=== PATIENT | female | born 1940 | race Caucasian/White ===

== ENCOUNTER 2018-12-04 07:46 | Emergency (ER) | payer MEDICARE ==
[~2018-12-04] VITALS: Ht 162.5 cm; Wt 55.0 kg
--- NOTE | 2018-12-04 07:53 | NUR ---
Ambulatory to ED 5 with spouse assist per pt request. Pt c/o feeling mild dizziness and very anxious. Resp 22/min. Pt begins to expel deep belching. See nursing unit coordinator/assessments.
[2018-12-04] MEDS ORDERED: LORazepam INJ 2 MG/ML (ATIVAN) VIAL IVP ONE (08:30)
[2018-12-04] MEDS ORDERED: NS IV 1000 ML 1,000 ML IV SCH (08:30)
[2018-12-04 08:42] LABS: BACTERIA,URINE TRACE /HPF; BILIRUBIN,URINE NEGATIVE (NEGATIVE); CLARITY,URINE CLEAR; COLOR,URINE PALE YELLOW; GLUCOSE, URINE (UA) NEGATIVE (NEGATIVE); KETONES,URINE NEGATIVE (NEGATIVE); LEUKOCYTE ESTERASE ,URINE NEGATIVE (NEGATIVE); NITRITE,URINE NEGATIVE (NEGATIVE); PROTEIN,URINE NEGATIVE (NEGATIVE); WBC,URINE RARE /HPF
[2018-12-04 08:54] LABS: HEMATOCRIT 38 % (35-52); HEMOGLOBIN 13.2 G/DL (11.5-16.0); MEAN CORPUSCULAR HEMOGLOBIN 33 PG (25-34); MEAN CORPUSCULAR HGB CONC 35 G/DL (32-36); MEAN CORPUSCULAR VOLUME 95 FL (80-99); RED CELL DISTRIBUTION WIDTH 12.1 % (10.0-14.5); WHITE BLOOD COUNT 4.5 10^3/uL (4.3-11.0)
--- NOTE | 2018-12-04 08:54 | ED General ---
General Chief Complaint: General Problems/Pain Stated Complaint: EXTREMITY NUMBNESS History of Present Illness Date Seen by Provider: Dec 04, 2018 Time Seen by Provider: 08:48 Initial Comments Patient presenting to emergency department for evaluation of multiple complaints including generalized weakness numbness and shakiness fatigue and not feeling well. She said when she went to bed last night she didn't feel well but cannot elaborate further and then she said she woke up at approximately 4:30 with pain in her fourth and fifth toes on the left side and then she started to feel numb all over and became shaky and short of breath. Patient says that she feels very tired she did not sleep well last night and that the numbness is bilateral arms and legs and she feels more numb legs anything else. She says the numbness has largely resolved but she feels shaky all over and cannot stop shaking her extremities. She does not appear to be actively shaking while I am in the room. She says the toe pain has resolved and she has no new pain such as headache chest pain or abdominal pain. She has medical history including normal including neuropathy and renal insufficiency anxiety but no diagnosis of heart attacks or strokes. She is in no obvious distress with normal vital signs. Allergies and Home Medications Allergies Coded Allergies: ipratropium (Unverified Adverse Reaction, Mild, Nausea and vomiting, 12/04/18) itraconazole (Unverified Adverse Reaction, Mild, Itching, hives, 12/04/18) Home Medications Cholecalciferol (Vitamin D3) 1,000 Unit Tablet, 1,000 UNIT PO DAILY, (Reported) Estradiol 1 Mg Tablet, 1 MG PO DAILY, (Reported) Famotidine 20 Mg Tablet, 20 MG PO DAILY, (Reported) L.acidoph & Paracasei,B.lactis 1 Each Capsule, 1 EACH PO DAILY, (Reported) Levothyroxine Sodium 75 Mcg Tablet, 75 MCG PO DAILY, (Reported) Lisinopril/Hydrochlorothiazide 1 Each Tablet, 1 TAB PO DAILY, (Reported) Metoprolol Succinate 100 Mg Tab.er.24h, 100 MG PO BID, (Reported) Patient Home Medication List Home Medication List Reviewed: Yes Review of Systems Review of Systems Constitutional: malaise EENTM: no symptoms reported Respiratory: short of breath Cardiovascular: no symptoms reported Gastrointestinal: nausea Genitourinary: no symptoms reported Musculoskeletal: no symptoms reported Skin: no symptoms reported Psychiatric/Neurological: Anxiety All Other Systems Reviewed Negative Unless Noted: Yes Past Pouqaiz-Fxdgkz-Rgopjr Hx Patient Social History Recent Foreign Travel: No Physical Abuse: No Sexual Abuse: No Mistreated: No Fear: No Physical Exam Vital Signs Vital Signs - First Documented 12/04/18 07:53 Temp 35.8 Pulse 60 Resp 22 B/P (MAP) 170/78 (108) Pulse Ox 100 O2 Delivery Room Air Capillary Refill : Height, Weight, BMI Height: '" Weight: lbs. oz. kg; BMI Method: General Appearance: No Apparent Distress, WD/WN HEENT: PERRL/EOMI Neck: Supple Respiratory: No Respiratory Distress Cardiovascular: Regular Rate, Rhythm Gastrointestinal: Non Tender, Soft Back: Normal Inspection Extremity: Normal Capillary Refill Neurologic/Psychiatric: Alert, Oriented x3, No Motor/Sensory Deficits Skin: Warm/Dry Progress/Results/Core Measures Suspected Sepsis SIRS Temperature: Pulse: Respiratory Rate: Laboratory Tests 12/04/18 08:41: White Blood Count 4.5 Blood Pressure / Mean: Laboratory Tests 12/04/18 08:41: Creatinine 1.20, Platelet Count 215, Total Bilirubin 0.6 Results/Orders Lab Results Laboratory Tests Test 12/04/18 07:55 12/04/18 08:41 Range/Units Urine Color PALE YELLOW Urine Clarity CLEAR Urine pH 8.0 5-9 Urine Specific [place] 1.010 L 1.016-1.022 Urine Protein NEGATIVE NEGATIVE Urine Glucose (UA) NEGATIVE NEGATIVE Urine Ketones NEGATIVE NEGATIVE Urine Nitrite NEGATIVE NEGATIVE Urine Bilirubin NEGATIVE NEGATIVE Urine Urobilinogen 0.2 NORMAL MG/DL Urine Leukocyte Esterase NEGATIVE NEGATIVE Urine RBC (Auto) NEGATIVE NEGATIVE Urine RBC NONE /HPF Urine WBC RARE /HPF Urine Squamous Epithelial Cells 5-10 /HPF Urine Crystals NONE /LPF Urine Bacteria TRACE /HPF Urine Casts NONE /LPF Urine Mucus NONE /LPF Urine Culture Indicated NO White Blood Count 4.5 4.3-11.0 10^3/uL Red Blood Count 3.98 L 4.35-5.85 10^6/uL Hemoglobin 13.2 11.5-16.0 G/DL Hematocrit 38 35-52 % Mean Corpuscular Volume 95 80-99 FL Mean Corpuscular Hemoglobin 33 25-34 PG Mean Corpuscular Hemoglobin Concent 35 32-36 G/DL Red Cell Distribution Width 12.1 10.0-14.5 % Platelet Count 215 130-400 10^3/uL Mean Platelet Volume 9.5 7.4-10.4 FL Neutrophils (%) (Auto) 63 42-75 % Lymphocytes (%) (Auto) 27 12-44 % Monocytes (%) (Auto) 8 0-12 % Eosinophils (%) (Auto) 1 0-10 % Basophils (%) (Auto) 0 0-10 % Neutrophils # (Auto) 2.8 1.8-7.8 X 10^3 Lymphocytes # (Auto) 1.2 1.0-4.0 X 10^3 Monocytes # (Auto) 0.4 0.0-1.0 X 10^3 Eosinophils # (Auto) 0.1 0.0-0.3 10^3/uL Basophils # (Auto) 0.0 0.0-0.1 10^3/uL Sodium Level 133 L 135-145 MMOL/L Potassium Level 3.7 3.6-5.0 MMOL/L Chloride Level 94 L 98-107 MMOL/L Carbon Dioxide Level 25 21-32 MMOL/L Anion Gap 14 5-14 MMOL/L Blood Urea Nitrogen 16 7-18 MG/DL Creatinine 1.20 0.60-1.30 MG/DL Estimat Glomerular Filtration Rate 44 BUN/Creatinine Ratio 13 Glucose Level 98 70-105 MG/DL Calcium Level 9.9 8.5-10.1 MG/DL Corrected Calcium 9.7 8.5-10.1 MG/DL Magnesium Level 1.6 1.6-2.4 MG/DL Total Bilirubin 0.6 0.1-1.0 MG/DL Aspartate Amino Transf (AST/SGOT) 23 5-34 U/L Alanine Aminotransferase (ALT/SGPT) 13 0-55 U/L Alkaline Phosphatase 61 40-136 U/L Troponin I < 0.30 <0.30 NG/ML Pro-B-Type Natriuretic Peptide 212.5 H <75.0 PG/ML Total Protein 6.8 6.4-8.2 GM/DL Albumin 4.3 3.2-4.5 GM/DL My Orders Orders - ARNULFO MORSE DO Ct Head Wo (12/04/18 08:26) Cbc With Automated Diff (12/04/18 08:26) Comprehensive Metabolic Panel (12/04/18 08:26) Magnesium (12/04/18 08:26) Probnp Fs (12/04/18 08:26) Troponin I Fs (12/04/18 08:26) Ua Culture If Indicated (12/04/18 08:26) Chest 1 View Ap/Pa Only (12/04/18 08:26) Ekg Tracing (12/04/18 08:26) Ns Iv 1000 Ml (Sodium Chloride 0.9%) (12/04/18 08:30) Lorazepam Injection (Ativan Injection) (12/04/18 08:30) Medications Given in ED Current Medications Medications Dose Ordered Sig/Mika Route Start Time Stop Time Status Last Admin Dose Admin Lorazepam 0.5 mg ONCE ONCE IVP 12/04/18 08:30 12/04/18 08:36 DC 12/04/18 08:58 0.5 MG Vital Signs/I&O 12/04/18 07:53 Temp 35.8 Pulse 60 Resp 22 B/P (MAP) 170/78 (108) Pulse Ox 100 O2 Delivery Room Air Capillary Refill : Progress Note : Progress Note Patient with multiple nonspecific symptoms which are likely related to anxiety given her age will go ahead and check EKG blood work urinalysis head CT chest x- ray treat with 0.5 mg of Ativan and reassess. Patient's workup came back negative for acute process with no signs of acute stroke acute coronary syndrome or metabolic derangements. She says she feels well and is back to her baseline after treatment with IV fluids and Ativan here and she says she would like to go home. She is asking if she could be prescribed something for anxiety as the Ativan took her symptoms completely away and I told her I could write her for when necessary Ativan to use it sparingly. Patient told to follow primary care provider within 3-4 days and come back to the ED sooner with worsening pain neurologic changes or other general concerns. Patient aware and agreeable with plan for discharge and verbalized understanding of the need for short-term follow-up and strict ED return precautions discussed as above. Departure Impression Primary Impression: Anxiety Additional Impression: Hyponatremia Disposition: 01 HOME, SELF-CARE Condition: Stable Departure-Patient Inst. Referrals: LUIS DAVENPORT MD (PCP/Family) Primary Care Physician Patient Instructions: Anxiety, Adult (DC) Scripts Lorazepam (Ativan) 0.5 Mg Tablet 0.5 MG PO TID PRN for ANXIETY for 7 Days, #7 TAB Prov: ARNULFO MORSE DO 12/04/18 ARNULFO MORSE DO Dec 04, 2018 08:54
[2018-12-04 08:55] LABS: BASOPHILS % (AUTO) 0 % (0-10); EOSINOPHILS # (AUTO) 0.1 10^3/uL (0.0-0.3); EOSINOPHILS % (AUTO) 1 % (0-10); LYMPHOCYTES # (AUTO) 1.2 X 10^3 (1.0-4.0); LYMPHOCYTES % (AUTO) 27 % (12-44); MEAN PLATELET VOLUME 9.5 FL (7.4-10.4); MONOCYTES # (AUTO) 0.4 X 10^3 (0.0-1.0); MONOCYTES % (AUTO) 8 % (0-12); NEUTROPHILS # (AUTO) 2.8 X 10^3 (1.8-7.8); NEUTROPHILS % (AUTO) 63 % (42-75); PLATELET COUNT 215 10^3/uL (130-400)
--- NOTE | 2018-12-04 08:55 | NUR ---
Returned from CT, plan assist to BR with W/C. Orders noted in eMAR.
--- NOTE | 2018-12-04 08:57 | Diagnostic Imaging Report ---
INDICATION: Upper and lower extremity weakness and near syncope. CT brain findings: Noncontrast brain CT is performed. There were no extra-axial fluid collections. No intracranial hemorrhage. No intracranial mass or mass effect. No midline shift. The ventricles are normal in size and position. There were no focal parenchymal abnormalities in the brain. Calvarial windows are unremarkable. There appear to postop changes in the right maxillary sinus. IMPRESSION: No acute intracranial abnormality. Dictated by: Dictated on workstation # [id number]
[2018-12-04 09:00] VITALS: BP 145/72
--- NOTE | 2018-12-04 09:06 | Diagnostic Imaging Report ---
INDICATION: Weakness, numbness. COMPARISON: None available. TECHNIQUE: Single frontal radiograph of the chest dated December 04, 2018. FINDINGS: The cardiac silhouette is within normal limits in size. No significant pulmonary vascular congestion. The left lung is clear. Rounded density within the medial right lung base is present. Otherwise, the right lung is clear. No significant pleural effusion. No pneumothorax. No acute osseous abnormality. Surgical clips are seen overlying the left upper abdomen. IMPRESSION: Rounded density within the medial right lung base is favored to relate to an epicardial fat pad. Comparison to prior imaging would be beneficial. If no prior imaging is available, follow-up frontal and lateral radiograph of the chest would be recommended. No acute cardiopulmonary abnormality. Dictated by: Dictated on workstation # [id number]
[2018-12-04] MEDS ORDERED: Vitamin B12 (09:09)
[2018-12-04] MEDS ORDERED: MTP100TCR PO (09:09)
[2018-12-04] MEDS ORDERED: ESTR1TAB24 PO (09:09)
[2018-12-04] MEDS ORDERED: CHOL10007 PO (09:09)
[2018-12-04] MEDS ORDERED: LISI1TAB29 PO (09:09)
[2018-12-04] MEDS ORDERED: FAMO20TA5 PO (09:09)
[2018-12-04] MEDS ORDERED: LEVO75TA6 PO (09:09)
[2018-12-04] MEDS ORDERED: L.AC1CAP6 PO (09:09)
[2018-12-04] MEDS ORDERED: CHOL10003 PO (09:09)
[2018-12-04 09:23] LABS: MAGNESIUM 1.6 MG/DL (1.6-2.4)
[2018-12-04] MEDS ORDERED: [UNRECOGNIZED DRUG - OTHER] (09:24)
--- NOTE | 2018-12-04 09:30 | NUR ---
Pt resting quietly. Dr has given update of awaiting rest of lab (Chem pending). Pt reports feeling better.
[2018-12-04 09:34] LABS: ALANINE AMINOTRANSFERASE 13 U/L (0-55); ALKALINE PHOSPHATASE 61 U/L (40-136); BILIRUBIN,TOTAL 0.6 MG/DL (0.1-1.0); BUN/CREATININE RATIO 13; CALCIUM 9.9 MG/DL (8.5-10.1); CARBON DIOXIDE 25 MMOL/L (21-32); CHLORIDE 94 MMOL/L (98-107); GFR ESTIMATED 44; GLUCOSE 98 MG/DL (70-105); POTASSIUM 3.7 MMOL/L (3.6-5.0); SODIUM 133 MMOL/L (135-145); TOTAL PROTEIN 6.8 GM/DL (6.4-8.2)
[2018-12-04 09:35] LABS: ALBUMIN 4.3 GM/DL (3.2-4.5)
[2018-12-04] MEDS ORDERED: LORA-404 PO (09:46)
--- NOTE | 2018-12-04 09:50 | NUR ---
Entered room to review discharge instructions. Pt has been given depart information per Dr Montgomery. No questions asked except for request of nerve pill RX if possible. Pt does not appear in any distress. Moves all extremities well.
[2018-12-04 09:57] VITALS: BP 137/61
--- NOTE | 2018-12-04 09:57 | NUR ---
Pt discharged at this time, assist patient with ambulation to registration desk. Pt feeling slight dizziness after rising. Pt cautioned to change positions slowly and go home to rest as she has been under influence of Ativan for anxiety and could feel mild symptoms of these type after this medication utilized: loss of coordination, drowsiness. Cautioned the use of the Ativan prescribed, using only sparingly as needed as addictive properties can develop and informed her this is a controlled substance. Dr Bryson is to be notified by her on her requesting f/u visit in a few days that she has this script and he is to determine any further usage after supply exhausts. Pt verbalizes understanding of discharge instructions reviewed in her spouse's presence.
--- OUTSIDE RECORDS SUMMARY | 2018-12-27 13:16 | XMS REPORT | Continuity of Care Document ---
Author Organization Unknown POS Address Unknown SP Phone Unavailable SP Allergies Active Description Code Type Severity POS Reaction Onset Reported/Identified POS to Patient Clinical Status POS Yes ipratropium [id number] Drug Aller gy SP Nausea and vomi 12/04/2018 SP SP Yes itraconazole [id number] Drug Allergy SP Mild Itching, hives 12/04/2018 SP SP Medications There is no data. Problems Date Dx Coded Attending Type Code POS Diagnosed By POS 12/04/2018 ARNULFO MORSE DO Ot E87 .1 SPOSMOLALITY AND HYPONATREMIA SP 12/04/2018 ARNULFO MORSE DO Ot F41 .9 SP DISORDER, UNSPECIFIED SP 12/04/2018 ARNULFO MORSE DO Ot G62 .9 SP UNSPECIFIED SP 12/04/2018 ARNULFO MORSE DO Ot R53 .1 SP SP 12/04/2018 ARNULFO MORSE DO Ot Z88 .8 SP STATUS TO OTH DRUG/MEDS/BIOL SUB SP 12/08/2018 ARNULFO MORSE DO Ot E87 .1 SPOSMOLALITY AND HYPONATREMIA SP 12/08/2018 ARNULFO MORSE DO Ot F41 .9 SP DISORDER, UNSPECIFIED SP 12/08/2018 ARNULFO MORSE DO Ot G62 .9 SP UNSPECIFIED SP 12/08/2018 ARNULFO MORSE DO Ot R53 .1 SP SP 12/08/2018 ARNULFO MORSE DO Ot Z88 .8 SP STATUS TO OTH DRUG/MEDS/BIOL SUB SP Procedures There is no data. Results Test Result Range POS LIPID PANEL - 05/14/18 10:22 POS CHOLESTEROL, TOTAL 187 mg/dL <200 SP HDL CHOLESTEROL 51 mg/dL >50 SP TRIGLYCERIDES 240 mg/dL <150 SP LDL-CHOLESTEROL 100 mg/dL (calc) NRG SP CHOL/HDLC RATIO 3.7 (calc) <5.0 SP NON HDL CHOLESTEROL 136 mg/dL (calc) <13 0 SP CMP - 05/14/18 10:22 POS GLUCOSE 79 mg/dL 65-99 SP UREA NITROGEN (BUN) 17 mg/dL 7-25 SP CREATININE 1.26 mg/dL 0.60-0.93 SP eGFR NON-AFR. BAHAMIAN 41 mL/min/1.73m2 > OR=60 SP eGFR 48 mL/min/1.73m2 > OR=60 SP BUN/CREATININE RATIO 13 (calc) 6-22 SP SODIUM 141 mmol/L 135-146 SP POTASSIUM 4.5 mmol/L 3.5-5.3 SP CHLORIDE 104 mmol/L 98-110 SP CARBON DIOXIDE 22 mmol/L 20-32 SP CALCIUM 9.2 mg/dL 8.6-10.4 SP PROTEIN, TOTAL 6.2 g/dL 6.1-8.1 SP ALBUMIN 4.1 g/dL 3.6-5.1 SP GLOBULIN 2.1 g/dL (calc) 1.9-3.7 SP ALBUMIN/GLOBULIN RATIO 2.0 (calc) 1.0-2. 5 SP BILIRUBIN, TOTAL 0.6 mg/dL 0.2-1.2 SP ALKALINE PHOSPHATASE 61 U/L 33-130 SP AST 24 U/L 10-35 SP ALT 12 U/L 6-29 SP CBC w/MANUAL DIFF - 05/14/18 10:22 POS WHITE BLOOD CELL COUNT 3.3 Thousand/uL 3 .8-10.8 SP RED BLOOD CELL COUNT 4.04 Million/uL 3.8 0-5.10 SP HEMOGLOBIN 13.2 g/dL 11.7-15.5 SP HEMATOCRIT 40.0 % 35.0-45.0 SP MCV 99.0 fL 80.0-100.0 SP MCH 32.7 pg 27.0-33.0 SP MCHC 33.0 g/dL 32.0-36.0 SP RDW 13.1 % 11.0-15.0 SP PLATELET COUNT 250 Thousand/uL 140-400 SP MPV 10.2 fL 7.5-12.5 SP ABSOLUTE NEUTROPHILS 1848 cells/uL 1500- 7800 SP ABSOLUTE MONOCYTES 198 cells/uL 200-950 SP ABSOLUTE EOSINOPHILS 33 cells/uL 15-500 SP ABSOLUTE BASOPHILS 66 cells/uL 0-200 SP NEUTROPHILS 56.0 % NRG SP LYMPHOCYTES 35.0 % NRG SP MONOCYTES 6.0 % NRG SP EOSINOPHILS 1.0 % NRG SP BASOPHILS 2.0 % NRG SP ABSOLUTE LYMPHOCYTES 1155 cells/uL 850-3 900 SP PLATELET ESTIMATION ADEQUATE ADEQUATE SP CBC MORPHOLOGY NORMAL SP TSH - 05/14/18 10:22 POS TSH 0.32 mIU/L 0.40-4.50 SP BMP - 06/16/18 15:07 POS GLUCOSE 90 mg/dL 65-99 SP UREA NITROGEN (BUN) 17 mg/dL 7-25 SP CREATININE 1.08 mg/dL 0.60-0.93 SP eGFR NON-AFR. BAHAMIAN 50 mL/min/1.73m2 > OR=60 SP eGFR 58 mL/min/1.73m2 > OR=60 SP BUN/CREATININE RATIO 16 (calc) 6-22 SP SODIUM 131 mmol/L 135-146 SP POTASSIUM 3.4 mmol/L 3.5-5.3 SP CHLORIDE 95 mmol/L 98-110 SP CARBON DIOXIDE 29 mmol/L 20-32 SP CALCIUM 9.0 mg/dL 8.6-10.4 SP VITAMIN D, 25-H - 07/28/18 09:50 POS VITAMIN D,25-OH,TOTAL,IA 44 ng/mL 30-10 0 SP TSH - 10/28/18 15:47 POS TSH 1.28 mIU/L 0.40-4.50 SP Complete urinalysis with reflex to cultu re - 12/04/18 07:55 POS Urine color determination PALE YELLOW N RG SP Urine clarity determination CLEAR NR G SP Urine pH measurement by test strip 8.0 5-9 SP Specific gravity of urine by test strip 1.010 1.016-1.022 SP Urine protein assay by test strip, semi-quantitative NEGATIVE SP NEGATIVE SP Urine glucose detection by automated test strip NE GATIVE SP Erythrocytes detection in urine sediment by light micr oscopy NEGATIVE SP NEGATIVE SP Urine ketones detection by automated test strip NE GATIVE SP Urine nitrite detection by test strip NEGATIVE NEGATIVE SP Urine total bilirubin detection by test strip NEGA TIVE SP Urine urobilinogen measurement by automated test strip (mass/volume) SP mg/dL NORMAL SP Urine leukocyte esterase detection by dipstick NEG ATIVE SP Automated urine sediment erythrocyte cou nt by microscopy (number/high power SP NONE NRG SP Automated urine sediment leukocyte count by microscopy (number/high power field) SP RARE NRG SP Bacteria detection in urine sediment by light microsco py TRACE SP NRG SP Squamous epithelial cells detection in u rine sediment by light microscopy SP 5-10 NRG SP Crystals detection in urine sediment by light microsco py NONE SP NRG SP Casts detection in urine sediment by light microscopy NONE SP Mucus detection in urine sediment by light microscopy NONE SP Complete urinalysis with reflex to culture NO NRG SP Complete blood count (CBC) with automate d white blood cell (WBC) differential - POS 08:41 Blood leukocytes automated count (number/volume) 4.5 10*3/uL POS 4.3-11.0 SP Blood erythrocytes automated count (number/volume) 3.98 10*6/uL SP 4.35-5.85 SP Venous blood hemoglobin measurement (mass/volume) 13.2 g/dL SP16.0 Blood hematocrit (volume fraction) 38 % 35-52 SP Automated erythrocyte mean corpuscular volume 95 [ foz_us] SP99 Automated erythrocyte mean corpuscular h emoglobin (mass per erythrocyte) SP 33 pg 25-34 SP Automated erythrocyte mean corpuscular h emoglobin concentration measurement SP 35 g/dL 32-36 SP Automated erythrocyte distribution width ratio 12. 1 % 10.0- SP Automated blood platelet count (count/volume) 215 10*3/uL SP400 Automated blood platelet mean volume measurement 9.5 [foz_us] SP 7.4-10.4 SP Automated blood neutrophils/100 leukocytes 63 % 42-75 SP Automated blood lymphocytes/100 leukocytes 27 % 12-44 SP Blood monocytes/100 leukocytes 8 % 0-12 SP Automated blood eosinophils/100 leukocytes 1 % 0-10 SP Automated blood basophils/100 leukocytes 0 % 0-10 SP Blood neutrophils automated count (number/volume) 2.8 10*3 SP7.8 Blood lymphocytes automated count (number/volume) 1.2 10*3 SP4.0 Blood monocytes automated count (number/volume) 0. 4 10*3 SP1.0 Automated eosinophil count 0.1 10*3/uL 0 .0-0.3 SP Automated blood basophil count (count/volume) 0.0 10*3/uL SP0.1 Comprehensive metabolic panel - 12/04/18 08:41 POS Serum or plasma sodium measurement (moles/volume) 133 mmol/L SP 135-145 SP Serum or plasma potassium measurement (moles/volume) 3.7 mmol/L SP 3.6-5.0 SP Serum or plasma chloride measurement (moles/volume) 94 mmol/L SP 98-107 SP Carbon dioxide 25 mmol/L 21-32 SP Serum or plasma anion gap determination (moles/volume) 14 mmol/L SP 5-14 SP Serum or plasma urea nitrogen measurement (mass/volume ) 16 mg/dL SP 7-18 SP Serum or plasma creatinine measurement (mass/volume) 1.20 mg/dL SP 0.60-1.30 SP Serum or plasma urea nitrogen/creatinine mass ratio 13 NRG SP Serum or plasma creatinine measurement w ith calculation of estimated glomerular SP rate 44 NRG SP Serum or plasma glucose measurement (mass/volume) 98 mg/dL SP105 Serum or plasma calcium measurement (mass/volume) 9.9 mg/dL SP10.1 Serum or plasma total bilirubin measurement (mass/volu me) 0.6 mg/dL SP 0.1-1.0 SP Serum or plasma alkaline phosphatase karen surement (enzymatic activity/volume) SP 61 U/L 40-136 SP Serum or plasma aspartate aminotransfera se measurement (enzymatic SP 23 U/L 5-34 SP Serum or plasma alanine aminotransferase measurement (enzymatic activity/volume) SP 13 U/L 0-55 SP Serum or plasma protein measurement (mass/volume) 6.8 g/dL SP8.2 Serum or plasma albumin measurement (mass/volume) 4.3 g/dL SP4.5 CALCIUM CORRECTED 9.7 mg/dL 8.5-10.1 SP Magnesium - 12/04/18 08:41 POS Magnesium 1.6 mg/dL 1.6-2.4 SP TROPONIN I FS - 12/04/18 08:41 POS TROPONIN I FS < 0.30 <0.30 SP PROBNP FS - 12/04/18 08:41 POS PROBNP FS 212.5 pg/mL <75.0 SP CULTURE, URINE - 12/07/18 09:57 POS CULTURE, URINE, ROUTINE NRG SP Encounters ACCT No. Visit Date/Time Discharge Status POS Pt. Type Provider Facility Loc./Un it POS Complaint POS [id number] 12/07/2018 09:40:00 12/07/2018 23:59: 59 CLS SP Outpatient LUIS DAVENPORT [facility] SP SP [id number] 12/07/2018 09:40:00 Document SPRegistration SP [id number] 10/28/2018 15:40:00 Document SPRegistration SP [id number] 07/28/2018 09:00:00 Document SPRegistration SP [id number] 06/16/2018 15:00:00 Document SPRegistration SP [id number] 05/14/2018 10:40:00 Document SPRegistration SP [id number] 12/04/2018 07:48:00 09:57:00 SP DIS Emergency ARNULFO MORSE DO - [facility] FS EXTREMITY NUMBNESS SP
== END 2018-12-04 09:57 | disposition home or self-care (01) ==
LOC: ER FS 07:48
DX: F41.9 Anxiety disorder, unspecified (principal); E87.1 Hypo-osmolality and hyponatremia; G62.9 Polyneuropathy, unspecified; Z88.8 Allergy status to other drugs, medicaments and biological substances
CPT/HCPCS: 36415; 70450; 71045; 80053; 81000; 83735; 83880; 84484; 85025; 93005; 96361; 96374

== ENCOUNTER → 2021-01-22 | Outpatient (CLI) | payer MEDICARE ==
[~2021-01-22] MED LIST: CHOL10003 PO; CHOL10007 PO; ESTR1TAB24 PO; FAMO20TA5 PO; L.AC1CAP6 PO; LEVO75TA6 PO; LISI1TAB44 PO; LORA-404 PO; MTP100TCR PO; Vitamin B12; [UNRECOGNIZED DRUG - OTHER]
--- NOTE | 2021-01-22 09:20 | Diagnostic Imaging Report ---
EXAMINATION: Left knee radiographs, 3 views. COMPARISON: None. HISTORY: 80-year-old female, left knee pain x 1 year. FINDINGS: There is very mild degenerative type enthesopathy at the distal quadriceps tendon insertion. The joint spaces appear well-preserved. There is no osteophyte formation. There is no knee joint effusion. There is no identified acute fracture. There is no identified radiopaque foreign body. IMPRESSION: 1. Mild degenerative type enthesopathy at the distal quadriceps tendon insertion. 2. Additional radiographic evaluation of the left knee is unremarkable. Dictated by: Dictated on workstation # [id number]
== END ==
LOC: RAD FS 08:25
PROVIDERS: ATTEND Nurse Practitioner
DX: M76.9 Unspecified enthesopathy, lower limb, excluding foot (principal)
CPT/HCPCS: 73562

== ENCOUNTER → 2021-04-10 | Outpatient (CLI) | payer MEDICARE ==
--- NOTE | 2021-04-10 09:09 | Diagnostic Imaging Report ---
INDICATION: BILATERAL LEG PAIN, NO KNOWN INJURY. TECHNIQUE: AP pelvis 8:42 AM CORRELATION STUDY: None FINDINGS: The pelvis demonstrates no evidence for acute fracture. The pectineal lines and obturator rings are maintained. Pubic symphysis and SI joints are unremarkable. Hips unremarkable. Sclerotic foci over the mid and right aspect of the sacrum, nonspecific ST etiology or significance. Multiple clips within the left hemipelvis. IMPRESSION: Negative for acute bony abnormality of the pelvis. Dictated by: Dictated on workstation # [id number]
--- NOTE | 2021-04-10 09:57 | Diagnostic Imaging Report ---
EXAM: Lumbar spine, 2 or 3 views. INDICATION: Bilateral leg pain. No known injury. COMPARISON: None. FINDINGS: Grade 1 retrolisthesis of L2 on L3. Moderate diffuse degenerative endplate changes are greatest at L5-S1. Vertebral body heights are preserved. No fracture is identified. Moderate facet arthropathy at L5-S1. Surgical clips in the left abdomen and pelvis. IMPRESSION: 1. Moderate spondylotic changes in the lumbar spine. 2. No acute radiographic findings. Dictated by: Dictated on workstation # [id number]
== END ==
LOC: RAD FS 08:27
PROVIDERS: ATTEND Nurse Practitioner
DX: M47.816 Spondylosis without myelopathy or radiculopathy, lumbar region (principal)
CPT/HCPCS: 72100; 72170

== ENCOUNTER → 2022-09-11 | Outpatient (CLI) | payer MEDICARE ==
--- NOTE | 2022-09-11 11:12 | Diagnostic Imaging Report ---
EXAMINATION: MRI lumbar spine without contrast. TECHNIQUE: Multiplanar, multisequence MRI of the lumbar spine was performed without contrast. HISTORY: Back pain. COMPARISON: None available. FINDINGS: The alignment of the lumbar spine is normal. Likely hemangioma within the L2 vertebral body. Marrow signal is otherwise normal. There are no compression fractures. The conus medullaris terminates at the level of L1. The distal spinal cord signal intensity is normal. There is mild multilevel disc height loss, greatest at L5-S1. Limited views of the abdomen and pelvis show no soft tissue abnormality. The aorta is normal. L1-L2: Small symmetric disc bulge. Mild facet hypertrophy. No central canal stenosis. Mild bilateral neural foraminal stenosis. L2-L3: Small symmetric disc bulge, facet and ligamentum flavum hypertrophy. No significant central canal stenosis. Mild bilateral neural foraminal stenosis. L3-L4: Small symmetric disc bulge, facet and ligamentum flavum hypertrophy. Mild central canal stenosis. Moderate bilateral neural foraminal stenosis. L4-L5: Small symmetric disc bulge. Mild facet hypertrophy. No significant central canal stenosis. Mild bilateral neural foraminal stenosis. L5-S1: Surgical changes from L5 laminectomy. There is mild facet hypertrophy. No central canal stenosis. Mild right and moderate left neural foraminal stenosis. IMPRESSION: 1. Multilevel degenerative changes of the lumbar spine with up to mild central canal stenosis at L3-L4. 2. Up to moderate foraminal stenosis bilaterally at L3-L4 as well as left L5-S1. Dictated by: Dictated on workstation # [id number]
== END ==
LOC: RAD 09:16
PROVIDERS: ATTEND Family Medicine
DX: M47.816 Spondylosis without myelopathy or radiculopathy, lumbar region (principal); M48.07 Spinal stenosis, lumbosacral region
CPT/HCPCS: 72148